=== PATIENT | female | born 1940 | race Caucasian/White ===

== ENCOUNTER 2016-07-25 12:16 | Inpatient (IN) | payer OTHER ==
[~2016-07-25] VITALS: Ht 152.4 cm; Wt 79.0 kg
[~2016-07-25 12:16] MED LIST: ACCOLATE20 MG PO; ACIDOPHILUS1 EAC4 PO; ALLEGRA ALLERG180 MG PO; ASPIRIN81 M2 PO; AUGMENTIN500 MG PO; BENTYL10 MG PO; BENZONATATE200 MG PO; BROVANA15 MCG/2 M IH; BUSPAR15 MG PO; CARDIZEM CD,CA240 MG PO; COZAAR50 MG PO; DOK PLUS TABLE1 EACH PO; DOXYCYCLINE HY100 M4 PO; DUONEB 2.5-0.5 M3 ML IH; ELIQUIS5 MG PO; EYE DROPS ALLER15 ML BOTH EYES; FISH OIL 1,2001 EAC4 PO; GABAPENTIN100 MG PO; HYDROCHLOROTH12.5 M3 PO; HYDROCHLOROTHIA25 MG PO; KENALOG,ARISTOC15 G1 TP; LANTUS 10100 UNITS/ SC; LEVAQUIN500 MG PO; LEVOFLOXACIN750 MG PO; LEXAPRO10 MG PO; LEXAPRO20 MG PO; LOSARTAN POTASS50 MG PO; METFORMIN HCL500 MG PO; MICRO-K10 ME2 PO; NABUMETONE750 MG PO; NORCO 5/3251 TABLET PO; NYSTATIN100000 UN1 PO; PAXIL20 MG PO; PRAVACHOL40 MG PO; PRAVASTATIN SOD40 MG PO; PREDNISONE10 MG PO; PREDNISONE20 MG PO; PREDNISONE50 MG PO; PROMETHAZINE12.5 M1 PO; PROTONIX40 MG PO; PROVENTIL HFA6.7 GM IH; PROVENTIL,2.5 MG/3 M IH; PROVENTIL2.5 MG/3 M IH; PULMICORT0.25 MG/1 IH; PULMICORT0.5 MG/21 IH; TRAMADOL HCL50 MG PO; VIBRAMYCIN100 MG PO; VITAMIN B-122500 MCG SL; VITAMIN D31000 UNI2 PO; ZAFIRLUKAST20 M1 PO; ZITHROMAX Z-PA250 MG PO
[2016-07-25 13:01] LABS: HEMATOCRIT 34.2 % (36.0-46.0); MCH 27.5 PG (29.0-34.0); MCHC 31.6 G/DL (30.0-36.0); MEAN PLAT.VOLUME 9.6 uM^3 (9.5-12.4); PLATELET COUNT 309 K/uL (156-360); RBC DIS.WIDTH-CV 13.4 % (11.8-14.6); RBC DIS.WIDTH-SD 41.9 % (39-53); RED BLOOD COUNT 3.93 M/uL (3.80-5.20); WHITE BLOOD COUNT 9.4 K/uL (4.1-10.2)
[2016-07-25 13:12] LABS: CHLORIDE 104 mEq/L (99-109); POTASSIUM 4.4 mEq/L (3.7-5.4); SODIUM 140 mEq/L (136-147)
[2016-07-25 13:14] LABS: GLUCOSE 216 mg/dL (70-99)
[2016-07-25 13:15] LABS: ANION GAP 10 MEQ/L (2-14)
[2016-07-25 13:18] LABS: GFR ESTIMATE (CALCULATED) > 59 mL/min/; UREA NITROGEN (BUN) 15 mg/dL (9-23)
[2016-07-25 13:26] LABS: TROP-I INTERPRETATION NEGATIVE; TROPONIN-I < 0.01 ng/mL (0.0-0.30)
[2016-07-25] MEDS ORDERED: HYDROCHLOROTHIA25 MG PO (14:34)
[2016-07-25] MEDS ORDERED: METFORMIN HCL500 MG PO (14:36)
[2016-07-25] MEDS ORDERED: MICRO-K10 ME2 PO (14:37)
[2016-07-25] MEDS ORDERED: PROVENTIL,2.5 MG/3 M IH (14:38)
[2016-07-25] MEDS ORDERED: CARDIZEM CD,CA240 MG PO (14:42)
[2016-07-25] MEDS ORDERED: LOSARTAN POTAS100 MG PO (14:43)
[2016-07-25] MEDS ORDERED: MUCINEX FAST-M1 EA13 PO (14:45)
[2016-07-25] MEDS ORDERED: ARTIFICIAL TEAR15 M1 BOTH EYES (14:51)
[2016-07-25 15:45] VITALS: BP 196/84
[2016-07-25 17:41] VITALS: BP 152/68
[2016-07-25 19:12] LABS: TROP-I INTERPRETATION NEGATIVE; TROPONIN-I < 0.01 ng/mL (0.0-0.30)
[2016-07-25 19:56] VITALS: BP 169/73
[2016-07-25 23:34] VITALS: BP 143/65
[2016-07-26 01:19] LABS: TROP-I INTERPRETATION NEGATIVE; TROPONIN-I < 0.01 ng/mL (0.0-0.30)
[2016-07-26 03:48] VITALS: BP 167/72
[2016-07-26 07:58] VITALS: BP 183/81
[2016-07-26 10:16] LABS: EOSINOPHIL (%) 0 % (0-5); IMMATURE GRANULOCYTE (%) 0.4 % (0.0-0.7); IMMATURE GRANULOCYTE COUNT 0.1 K/uL; LYMPHOCYTE COUNT 0.8 K/uL (1.0-2.8); MCH 28.1 PG (29.0-34.0); MCHC 32.7 G/DL (30.0-36.0); MCV 85.7 FL (83-99); MEAN PLAT.VOLUME 9.9 uM^3 (9.5-12.4); MONOCYTE (%) 1.9 % (3-12); MONOCYTE COUNT 0.2 K/uL (0-0.8); NEUTROPHIL (%) 90.6 % (45-76); NEUTROPHIL COUNT 10.7 K/uL (1.8-6.4); PLATELET COUNT 308 K/uL (156-360); RBC DIS.WIDTH-CV 13.5 % (11.8-14.6); RED BLOOD COUNT 3.85 M/uL (3.80-5.20); WHITE BLOOD COUNT 11.8 K/uL (4.1-10.2)
[2016-07-26 10:31] LABS: ANION GAP 9 MEQ/L (2-14); CHLORIDE 97 MEQ/L (99-109); MAGNESIUM 1.5 mg/dl (1.3-2.7); POTASSIUM 3.9 MEQ/L (3.7-5.4); SAMPLE HEMOLYSIS CHECK 0; SAMPLE ICTERIC CHECK 0; SAMPLE LIPEMIA CHECK 0; SODIUM 136 MEQ/L (136-147)
[2016-07-26 10:36] LABS: GFR ESTIMATE (CALCULATED) > 59 mL/min/; GLUCOSE 289 mg/dL (70-99); UREA NITROGEN (BUN) 18 mg/dL (9-23)
[2016-07-26 16:29] VITALS: BP 160/71
[2016-07-26 19:47] VITALS: BP 168/77
[2016-07-26 22:56] VITALS: BP 160/64
[2016-07-27] VITALS (8 sets, daily range): BP systolic 125–178; BP diastolic 65–86
[2016-07-27 06:31] LABS: ANION GAP 9 MEQ/L (2-14); CHLORIDE 97 MEQ/L (99-109); GFR ESTIMATE (CALCULATED) > 59 mL/min/; GLUCOSE 193 mg/dL (70-99); MAGNESIUM 1.5 mg/dl (1.3-2.7); POTASSIUM 3.7 MEQ/L (3.7-5.4); SAMPLE HEMOLYSIS CHECK 0; SAMPLE ICTERIC CHECK 0; SAMPLE LIPEMIA CHECK 0; SODIUM 136 MEQ/L (136-147); UREA NITROGEN (BUN) 21 mg/dL (9-23)
[2016-07-27 06:48] LABS: EOSINOPHIL (%) 0 % (0-5); HEMATOCRIT 35.6 % (36.0-46.0); IMMATURE GRANULOCYTE (%) 0.3 % (0.0-0.7); IMMATURE GRANULOCYTE COUNT 0.1 K/uL; LYMPHOCYTE COUNT 1.3 K/uL (1.0-2.8); MCH 28.1 PG (29.0-34.0); MCHC 32.6 G/DL (30.0-36.0); MCV 86.2 FL (83-99); MEAN PLAT.VOLUME 10.4 uM^3 (9.5-12.4); MONOCYTE COUNT 1.2 K/uL (0-0.8); NEUTROPHIL (%) 87.4 % (45-76); NEUTROPHIL COUNT 17.4 K/uL (1.8-6.4); PLATELET COUNT 346 K/uL (156-360); RBC DIS.WIDTH-CV 13.6 % (11.8-14.6); RBC DIS.WIDTH-SD 42.3 % (39-53); RED BLOOD COUNT 4.13 M/uL (3.80-5.20); WHITE BLOOD COUNT 19.9 K/uL (4.1-10.2)
[2016-07-28 08:20] VITALS: BP 134/65
[2016-07-28 16:15] VITALS: BP 130/73
[2016-07-28 20:24] VITALS: BP 121/63
[2016-07-29 00:06] VITALS: BP 154/78
[2016-07-29 07:30] VITALS: BP 142/62
[2016-07-29 07:50] LABS: EOSINOPHIL (%) 1.6 % (0-5); EOSINOPHIL COUNT 0.2 K/uL (0-0.3); HEMATOCRIT 37.1 % (36.0-46.0); IMMATURE GRANULOCYTE (%) 0.4 % (0.0-0.7); IMMATURE GRANULOCYTE COUNT 0.1 K/uL; LYMPHOCYTE COUNT 3.4 K/uL (1.0-2.8); MCH 27.7 PG (29.0-34.0); MCHC 31.5 G/DL (30.0-36.0); MCV 87.7 FL (83-99); MEAN PLAT.VOLUME 10.5 uM^3 (9.5-12.4); MONOCYTE (%) 10.4 % (3-12); MONOCYTE COUNT 1.3 K/uL (0-0.8); NEUTROPHIL (%) 61.6 % (45-76); PLATELET COUNT 356 K/uL (156-360); RBC DIS.WIDTH-SD 44.2 % (39-53); RED BLOOD COUNT 4.23 M/uL (3.80-5.20)
[2016-07-29 07:54] LABS: WHITE BLOOD COUNT 12.9 K/uL (4.1-10.2)
[2016-07-29 08:00] LABS: ALKALINE PHOSPHATASE 59 IU/L (3-129); ANION GAP 7 MEQ/L (2-14); CHLORIDE 100 MEQ/L (99-109); GFR ESTIMATE (CALCULATED) > 59 mL/min/; GLUCOSE 88 mg/dL (70-99); MAGNESIUM 1.8 mg/dl (1.3-2.7); POTASSIUM 3.9 MEQ/L (3.7-5.4); SAMPLE HEMOLYSIS CHECK 0; SAMPLE ICTERIC CHECK 0; SAMPLE LIPEMIA CHECK 0; SODIUM 138 MEQ/L (136-147); TOTAL BILIRUBIN 0.4 MG/DL (0.0-1.0); UREA NITROGEN (BUN) 24 mg/dL (9-23)
[2016-07-29 14:01] LABS: TROP-I INTERPRETATION NEGATIVE; TROPONIN-I 0.02 ng/mL (0.0-0.30)
[2016-07-29 16:30] LABS: POINT-OF-CARE METER ID UU14162508
[2016-07-29 16:37] VITALS: BP 116/57
[2016-07-29 17:00] LABS: ADD MIUA? YES; BILIRUBIN NEGATIVE; BLOOD NEGATIVE; COLOR YELLOW ((YELLOW)); GLUCOSE (STRIP) 150; KETONES NEGATIVE; LEUKOCYTES TRACE; NITRITE NEGATIVE; PROTEIN (STRIP) NEGATIVE; SPECIFIC GRAVITY 1.015 (1.000-1.030); UROBILINOGEN 0.2 MG/DL (0.2-1.0)
[2016-07-29 17:03] LABS: Estimated Average Glucose 169 mg/dL (70-123); HEMOGLOBIN A1c (GLYCOHEMOGLOB) 7.5 % HGB (Below 5.7)
[2016-07-29 17:12] LABS: BACTERIA NONE SEEN /HPF; EPITHELIAL CELLS RARE /HPF; HYALINE CASTS 0-5 /LPF; MUCUS TRACE /LPF; RED BLOOD CELLS 0-5 /HPF (0-5); UCUL ADDED? NO; WHITE BLOOD CELLS 0-5 /HPF (0-5)
[2016-07-29 19:49] VITALS: BP 138/88
[2016-07-29 19:53] LABS: TROP-I INTERPRETATION NEGATIVE; TROPONIN-I 0.01 ng/mL (0.0-0.30)
[2016-07-29 21:45] LABS: POINT-OF-CARE METER ID UU14162508
[2016-07-29 23:50] VITALS: BP 137/95
[2016-07-30 01:49] LABS: TROP-I INTERPRETATION NEGATIVE; TROPONIN-I 0.01 ng/mL (0.0-0.30)
[2016-07-30 03:15] VITALS: BP 158/78
[2016-07-30 07:13] LABS: EOSINOPHIL (%) 2.6 % (0-5); EOSINOPHIL COUNT 0.3 K/uL (0-0.3); HEMATOCRIT 37.7 % (36.0-46.0); IMMATURE GRANULOCYTE (%) 0.4 % (0.0-0.7); IMMATURE GRANULOCYTE COUNT 0.1 K/uL; LYMPHOCYTE COUNT 3.5 K/uL (1.0-2.8); MCH 26.9 PG (29.0-34.0); MCHC 30.8 G/DL (30.0-36.0); MCV 87.3 FL (83-99); MEAN PLAT.VOLUME 10.4 uM^3 (9.5-12.4); MONOCYTE COUNT 0.9 K/uL (0-0.8); NEUTROPHIL (%) 59.3 % (45-76); PLATELET COUNT 359 K/uL (156-360); RBC DIS.WIDTH-CV 13.8 % (11.8-14.6); RBC DIS.WIDTH-SD 44.2 % (39-53); RED BLOOD COUNT 4.32 M/uL (3.80-5.20); WHITE BLOOD COUNT 11.7 K/uL (4.1-10.2)
[2016-07-30 07:20] VITALS: BP 152/62
[2016-07-30 07:40] LABS: ALKALINE PHOSPHATASE 53 IU/L (3-129); ANION GAP 7 MEQ/L (2-14); CHLORIDE 98 MEQ/L (99-109); GFR ESTIMATE (CALCULATED) > 59 mL/min/; GLUCOSE 85 mg/dL (70-99); SAMPLE HEMOLYSIS CHECK 0; SAMPLE ICTERIC CHECK 0; SAMPLE LIPEMIA CHECK 0; SODIUM 136 MEQ/L (136-147); UREA NITROGEN (BUN) 26 mg/dL (9-23)
[2016-07-30 07:52] LABS: TOTAL BILIRUBIN 0.5 MG/DL (0.0-1.0)
[2016-07-30 11:37] VITALS: BP 142/72
[2016-07-30 11:47] LABS: POINT-OF-CARE METER ID UU14162508
[2016-07-30 16:30] VITALS: BP 130/64
[2016-07-30 16:36] LABS: POINT-OF-CARE METER ID UU14162508
[2016-07-30 19:59] VITALS: BP 131/63
[2016-07-30 21:38] LABS: POINT-OF-CARE METER ID UU14162508
[2016-07-30 23:39] VITALS: BP 118/81
[2016-07-31 03:55] VITALS: BP 136/68
[2016-07-31 06:15] LABS: POINT-OF-CARE METER ID UU14162508
[2016-07-31 08:21] VITALS: BP 130/64
[2016-07-31] MEDS ORDERED: LANTUS 10100 UNITS/ SC ×2 (12:02)
[2016-07-31] MEDS ORDERED: PREDNISONE10 MG PO (12:04)
[2016-07-31] MEDS ORDERED: XARELTO20 MG PO (12:04)
[2016-07-31] MEDS ORDERED: METOPROLOL TART50 MG PO (12:04)
[2016-07-31] MEDS ORDERED: APRESOLINE25 MG PO (12:04)
[2016-07-31 12:21] VITALS: BP 96/55
== END 2016-07-31 14:45 | disposition home health service (06) | DRG 191 ==
LOC: EME 12:16 → 2EAST 14:12 → EDOF 14:12 → 2EAST 15:23
PROVIDERS: Emergency Medicine; Hospitalist; Internal Medicine; Nurse Practitioner Adult Health
DX: J44.1 Chronic obstructive pulmonary disease with (acute) exacerbation (principal); J96.10 Chronic respiratory failure, unspecified whether with hypoxia or hypercapnia; E11.65 Type 2 diabetes mellitus with hyperglycemia; Z99.81 Dependence on supplemental oxygen; I48.0 Paroxysmal atrial fibrillation; I10 Essential (primary) hypertension; Z79.4 Long term (current) use of insulin; E78.5 Hyperlipidemia, unspecified; F41.9 Anxiety disorder, unspecified; Z87.891 Personal history of nicotine dependence; K21.9 Gastro-esophageal reflux disease without esophagitis; F32.9 Major depressive disorder, single episode, unspecified
CPT/HCPCS: 71010; 80048; 80053; 81003; 82948; 83036; 83735; 83880; 84484; 85025; 85027; 87449; 92526 GN; 92610 GN; 93005; 94640; 94640 76; 94760; 94799; 99281; 99285; J1815; J2405; J2930; J7512; J7644

== ENCOUNTER 2016-08-13 11:34 | Inpatient (IN) | payer OTHER ==
[~2016-08-13] VITALS: Ht 152.4 cm; Wt 82.5 kg
[~2016-08-13 11:34] MED LIST changes: +APRESOLINE25 MG PO; +ARTIFICIAL TEAR15 M1 BOTH EYES; +LOSARTAN POTAS100 MG PO; +METOPROLOL TART50 MG PO; +MUCINEX FAST-M1 EA13 PO; +XARELTO20 MG PO
[2016-08-13 13:05] LABS: HEMATOCRIT 34.2 % (36.0-46.0); MCH 27.3 PG (29.0-34.0); MCHC 30.7 G/DL (30.0-36.0); MCV 89.1 FL (83-99); MEAN PLAT.VOLUME 9.5 uM^3 (9.5-12.4); RBC DIS.WIDTH-CV 13.6 % (11.8-14.6); RBC DIS.WIDTH-SD 44.5 % (39-53); RED BLOOD COUNT 3.84 M/uL (3.80-5.20); WHITE BLOOD COUNT 10.4 K/uL (4.1-10.2)
[2016-08-13 13:08] LABS: CARBON DIOXIDE (BICARBONATE) 37.6 MEQ/L (20-31)
[2016-08-13 13:11] LABS: PLATELET COUNT 223 K/uL (156-360)
[2016-08-13 13:16] LABS: D-DIMER ELISA 0.38 mg/L FEU (< 0.57)
[2016-08-13 13:37] LABS: ANION GAP 5 MEQ/L (2-14); CHLORIDE 97 MEQ/L (99-109); GFR ESTIMATE (CALCULATED) > 59 mL/min/; GLUCOSE 202 mg/dL (70-99); POTASSIUM 3.9 MEQ/L (3.7-5.4); SAMPLE HEMOLYSIS CHECK 0; SAMPLE ICTERIC CHECK 0; SAMPLE LIPEMIA CHECK 0; SODIUM 137 MEQ/L (136-147); UREA NITROGEN (BUN) 11 mg/dL (9-23)
[2016-08-13 13:41] LABS: TROP-I INTERPRETATION NEGATIVE; TROPONIN-I 0.01 ng/mL (0.0-0.30)
[2016-08-13] MEDS ORDERED: HYDRALAZINE HCL25 MG PO (17:14)
[2016-08-13] MEDS ORDERED: LANTUS 10100 UNITS/ SC (17:15)
[2016-08-13] MEDS ORDERED: LOSARTAN POTAS100 MG PO (17:16)
[2016-08-13] MEDS ORDERED: RELAFEN750 MG PO (17:18)
[2016-08-13] MEDS ORDERED: METFORMIN HCL500 MG PO (17:18)
[2016-08-13] MEDS ORDERED: CENTRUM SILVER1 EAC3 PO (17:18)
[2016-08-13] MEDS ORDERED: K-DUR10 MEQ PO (17:19)
[2016-08-13] MEDS ORDERED: ALEVE220 MG PO (17:19)
[2016-08-13] MEDS ORDERED: DUONEB 2.5-0.5 M3 ML AEROSOL (17:20)
[2016-08-13 17:29] VITALS: BP 149/68
[2016-08-13 19:35] VITALS: BP 149/60
[2016-08-13 20:43] LABS: TROP-I INTERPRETATION NEGATIVE; TROPONIN-I 0.01 ng/mL (0.0-0.30)
[2016-08-13 23:37] VITALS: BP 158/68
[2016-08-14 01:56] LABS: TROP-I INTERPRETATION NEGATIVE; TROPONIN-I 0.01 ng/mL (0.0-0.30)
[2016-08-14 03:37] VITALS: BP 159/63
[2016-08-14 04:58] LABS: INFLUENZA A VIRAL ANTIGEN NEGATIVE
[2016-08-14 04:59] LABS: INFLUENZA B VIRAL ANTIGEN NEGATIVE
[2016-08-14 07:22] LABS: EOSINOPHIL (%) 0 % (0-5); HEMATOCRIT 32.2 % (36.0-46.0); IMMATURE GRANULOCYTE (%) 0.5 % (0.0-0.7); INSTRUMENT ABS NEUTROPHIL CT 7.8 K/uL; LYMPHOCYTE COUNT 0.4 K/uL (1.0-2.8); MCHC 30.7 G/DL (30.0-36.0); MEAN PLAT.VOLUME 10.3 uM^3 (9.5-12.4); MONOCYTE (%) 2.1 % (3-12); MONOCYTE COUNT 0.2 K/uL (0-0.8); NEUTROPHIL (%) 92.3 % (45-76); NEUTROPHIL COUNT 7.8 K/uL (1.8-6.4); PLATELET COUNT 236 K/uL (156-360); RBC DIS.WIDTH-CV 13.7 % (11.8-14.6); RBC DIS.WIDTH-SD 44.3 % (39-53); RED BLOOD COUNT 3.66 M/uL (3.80-5.20); WHITE BLOOD COUNT 8.5 K/uL (4.1-10.2)
[2016-08-14 07:33] LABS: ANION GAP 9 MEQ/L (2-14); CHLORIDE 97 MEQ/L (99-109); GFR ESTIMATE (CALCULATED) > 59 mL/min/; GLUCOSE 292 mg/dL (70-99); POTASSIUM 4.2 MEQ/L (3.7-5.4); SAMPLE HEMOLYSIS CHECK 0; SAMPLE ICTERIC CHECK 0; SAMPLE LIPEMIA CHECK 0; SODIUM 136 MEQ/L (136-147); UREA NITROGEN (BUN) 13 mg/dL (9-23)
[2016-08-14 09:07] LABS: INTERNAL CONTROL VALID? YES
[2016-08-14 09:17] VITALS: BP 158/80
[2016-08-14 11:43] VITALS: BP 180/77
[2016-08-14 16:52] VITALS: BP 169/74
[2016-08-14 19:00] VITALS: BP 147/67
[2016-08-14 22:13] LABS: POINT-OF-CARE METER ID UU14162508
[2016-08-15] VITALS: BP 175/74
[2016-08-15 04:51] VITALS: BP 168/70
[2016-08-15 07:06] LABS: EOSINOPHIL (%) 0 % (0-5); HEMATOCRIT 34.4 % (36.0-46.0); IMMATURE GRANULOCYTE (%) 0.7 % (0.0-0.7); IMMATURE GRANULOCYTE COUNT 0.1 K/uL; INSTRUMENT ABS NEUTROPHIL CT 13.6 K/uL; LYMPHOCYTE COUNT 0.7 K/uL (1.0-2.8); MCHC 30.5 G/DL (30.0-36.0); MCV 88.4 FL (83-99); MEAN PLAT.VOLUME 9.6 uM^3 (9.5-12.4); MONOCYTE COUNT 0.5 K/uL (0-0.8); NEUTROPHIL (%) 91.4 % (45-76); NEUTROPHIL COUNT 13.6 K/uL (1.8-6.4); PLATELET COUNT 269 K/uL (156-360); RBC DIS.WIDTH-CV 13.9 % (11.8-14.6); RBC DIS.WIDTH-SD 45.1 % (39-53); RED BLOOD COUNT 3.89 M/uL (3.80-5.20); WHITE BLOOD COUNT 14.9 K/uL (4.1-10.2)
[2016-08-15 07:10] LABS: ALKALINE PHOSPHATASE 54 IU/L (3-129); ANION GAP 7 MEQ/L (2-14); CHLORIDE 99 MEQ/L (99-109); GFR ESTIMATE (CALCULATED) > 59 mL/min/; GLUCOSE 283 mg/dL (70-99); POTASSIUM 4.3 MEQ/L (3.7-5.4); SAMPLE HEMOLYSIS CHECK 0; SAMPLE ICTERIC CHECK 0; SAMPLE LIPEMIA CHECK 0; SODIUM 135 MEQ/L (136-147); TOTAL BILIRUBIN 0.6 MG/DL (0.0-1.0); UREA NITROGEN (BUN) 18 mg/dL (9-23)
[2016-08-15 08:12] VITALS: BP 155/67
[2016-08-15 11:49] VITALS: BP 160/71
[2016-08-15 15:50] VITALS: BP 185/78
[2016-08-15 16:30] LABS: POINT-OF-CARE USER ID STWLMB34
[2016-08-15 19:00] VITALS: BP 164/74
[2016-08-16 00:59] VITALS: BP 158/92
[2016-08-16 04:28] VITALS: BP 179/75
[2016-08-16 07:39] LABS: EOSINOPHIL (%) 0 % (0-5); HEMATOCRIT 36.7 % (36.0-46.0); IMMATURE GRANULOCYTE (%) 1.1 % (0.0-0.7); IMMATURE GRANULOCYTE COUNT 0.1 K/uL; INSTRUMENT ABS NEUTROPHIL CT 12.2 K/uL; LYMPHOCYTE COUNT 0.6 K/uL (1.0-2.8); MCH 27.5 PG (29.0-34.0); MCHC 31.1 G/DL (30.0-36.0); MCV 88.6 FL (83-99); MEAN PLAT.VOLUME 9.5 uM^3 (9.5-12.4); MONOCYTE (%) 2.4 % (3-12); MONOCYTE COUNT 0.3 K/uL (0-0.8); NEUTROPHIL (%) 91.8 % (45-76); NEUTROPHIL COUNT 12.2 K/uL (1.8-6.4); PLATELET COUNT 289 K/uL (156-360); RBC DIS.WIDTH-CV 14.2 % (11.8-14.6); RBC DIS.WIDTH-SD 45.6 % (39-53); RED BLOOD COUNT 4.14 M/uL (3.80-5.20); WHITE BLOOD COUNT 13.3 K/uL (4.1-10.2)
[2016-08-16 08:00] VITALS: BP 155/92
[2016-08-16 08:05] LABS: ALKALINE PHOSPHATASE 55 IU/L (3-129); ANION GAP 10 MEQ/L (2-14); CHLORIDE 99 MEQ/L (99-109); GFR ESTIMATE (CALCULATED) > 59 mL/min/; GLUCOSE 213 mg/dL (70-99); POTASSIUM 3.7 MEQ/L (3.7-5.4); SAMPLE HEMOLYSIS CHECK 0; SAMPLE ICTERIC CHECK 0; SAMPLE LIPEMIA CHECK 0; SODIUM 139 MEQ/L (136-147); TOTAL BILIRUBIN 0.7 MG/DL (0.0-1.0); UREA NITROGEN (BUN) 14 mg/dL (9-23)
[2016-08-16 12:00] VITALS: BP 153/73
[2016-08-16 12:17] LABS: POINT-OF-CARE METER ID UU14162508
[2016-08-16 14:39] LABS: ADD MIUA? YES; BILIRUBIN NEGATIVE; BLOOD NEGATIVE; COLOR YELLOW ((YELLOW)); GLUCOSE (STRIP) >=500; KETONES NEGATIVE; LEUKOCYTES NEGATIVE; NITRITE NEGATIVE; PROTEIN (STRIP) 100; SPECIFIC GRAVITY 1.013 (1.000-1.030); UROBILINOGEN 0.2 MG/DL (0.2-1.0)
[2016-08-16 14:45] LABS: BACTERIA RARE /HPF; EPITHELIAL CELLS RARE /HPF; HYALINE CASTS 0-5 /LPF; MUCUS TRACE /LPF; RED BLOOD CELLS 15-20 /HPF (0-5); UCUL ADDED? NO; WHITE BLOOD CELLS 0-5 /HPF (0-5)
[2016-08-16 16:42] LABS: POINT-OF-CARE METER ID UU14162508; POINT-OF-CARE USER ID 612031306
[2016-08-16 20:00] VITALS: BP 142/78
[2016-08-16 23:22] VITALS: BP 142/81
[2016-08-17 06:30] LABS: POINT-OF-CARE METER ID UU14162508
[2016-08-17 07:58] LABS: EOSINOPHIL (%) 0 % (0-5); HEMATOCRIT 35.4 % (36.0-46.0); IMMATURE GRANULOCYTE (%) 0.6 % (0.0-0.7); IMMATURE GRANULOCYTE COUNT 0.1 K/uL; INSTRUMENT ABS NEUTROPHIL CT 10.4 K/uL; LYMPHOCYTE COUNT 0.6 K/uL (1.0-2.8); MCH 27.3 PG (29.0-34.0); MCHC 31.4 G/DL (30.0-36.0); MEAN PLAT.VOLUME 9.7 uM^3 (9.5-12.4); MONOCYTE COUNT 0.5 K/uL (0-0.8); NEUTROPHIL (%) 89.9 % (45-76); NEUTROPHIL COUNT 10.4 K/uL (1.8-6.4); PLATELET COUNT 290 K/uL (156-360); RBC DIS.WIDTH-CV 13.9 % (11.8-14.6); RED BLOOD COUNT 4.07 M/uL (3.80-5.20); WHITE BLOOD COUNT 11.6 K/uL (4.1-10.2)
[2016-08-17 08:00] VITALS: BP 168/74
[2016-08-17 08:20] LABS: ALKALINE PHOSPHATASE 56 IU/L (3-129); ANION GAP 10 MEQ/L (2-14); CHLORIDE 97 MEQ/L (99-109); GFR ESTIMATE (CALCULATED) > 59 mL/min/; GLUCOSE 264 mg/dL (70-99); POTASSIUM 3.6 MEQ/L (3.7-5.4); SAMPLE HEMOLYSIS CHECK 0; SAMPLE ICTERIC CHECK 0; SAMPLE LIPEMIA CHECK 0; SODIUM 138 MEQ/L (136-147); TOTAL BILIRUBIN 0.7 MG/DL (0.0-1.0)
[2016-08-17 08:21] LABS: UREA NITROGEN (BUN) 24 mg/dL (9-23)
[2016-08-17 13:08] LABS: POINT-OF-CARE METER ID UU14162508
[2016-08-17 16:00] VITALS: BP 168/71
[2016-08-17 16:58] LABS: POINT-OF-CARE METER ID UU14162508
[2016-08-17 21:31] LABS: POINT-OF-CARE METER ID UU14162508
[2016-08-17 23:41] VITALS: BP 168/85
[2016-08-18 10:00] LABS: EOSINOPHIL (%) 0 % (0-5); HEMATOCRIT 38.2 % (36.0-46.0); IMMATURE GRANULOCYTE (%) 0.8 % (0.0-0.7); IMMATURE GRANULOCYTE COUNT 0.1 K/uL; INSTRUMENT ABS NEUTROPHIL CT 12.3 K/uL; LYMPHOCYTE COUNT 0.6 K/uL (1.0-2.8); MCHC 32.2 G/DL (30.0-36.0); MEAN PLAT.VOLUME 9.8 uM^3 (9.5-12.4); MONOCYTE (%) 5.6 % (3-12); MONOCYTE COUNT 0.8 K/uL (0-0.8); NEUTROPHIL (%) 89.2 % (45-76); NEUTROPHIL COUNT 12.3 K/uL (1.8-6.4); PLATELET COUNT 318 K/uL (156-360); RBC DIS.WIDTH-CV 13.7 % (11.8-14.6); RBC DIS.WIDTH-SD 43.3 % (39-53); RED BLOOD COUNT 4.39 M/uL (3.80-5.20); WHITE BLOOD COUNT 13.8 K/uL (4.1-10.2)
[2016-08-18 10:30] LABS: ALKALINE PHOSPHATASE 63 IU/L (3-129); ANION GAP 12 MEQ/L (2-14); CHLORIDE 97 MEQ/L (99-109); GFR ESTIMATE (CALCULATED) > 59 mL/min/; GLUCOSE 396 mg/dL (70-99); POTASSIUM 3.6 MEQ/L (3.7-5.4); SAMPLE HEMOLYSIS CHECK 0; SAMPLE ICTERIC CHECK 0; SAMPLE LIPEMIA CHECK 0; SODIUM 136 MEQ/L (136-147); TOTAL BILIRUBIN 0.9 MG/DL (0.0-1.0); UREA NITROGEN (BUN) 25 mg/dL (9-23)
[2016-08-18 10:45] VITALS: BP 162/72
[2016-08-18 15:45] VITALS: BP 160/74
[2016-08-18 19:05] VITALS: BP 166/73
[2016-08-19 03:48] VITALS: BP 172/85
[2016-08-19 07:11] LABS: EOSINOPHIL (%) 0.4 % (0-5); EOSINOPHIL COUNT 0.1 K/uL (0-0.3); IMMATURE GRANULOCYTE (%) 0.5 % (0.0-0.7); IMMATURE GRANULOCYTE COUNT 0.1 K/uL; INSTRUMENT ABS NEUTROPHIL CT 10.7 K/uL; LYMPHOCYTE COUNT 1.5 K/uL (1.0-2.8); MCH 27.7 PG (29.0-34.0); MCHC 31.8 G/DL (30.0-36.0); MONOCYTE (%) 8.9 % (3-12); MONOCYTE COUNT 1.2 K/uL (0-0.8); NEUTROPHIL (%) 79.1 % (45-76); NEUTROPHIL COUNT 10.7 K/uL (1.8-6.4); PLATELET COUNT 335 K/uL (156-360); RBC DIS.WIDTH-CV 13.7 % (11.8-14.6); RBC DIS.WIDTH-SD 43.2 % (39-53); RED BLOOD COUNT 4.37 M/uL (3.80-5.20); WHITE BLOOD COUNT 13.6 K/uL (4.1-10.2)
[2016-08-19 07:50] LABS: ANION GAP 7 MEQ/L (2-14); CHLORIDE 97 MEQ/L (99-109); GFR ESTIMATE (CALCULATED) > 59 mL/min/; POTASSIUM 3.1 MEQ/L (3.7-5.4); SAMPLE HEMOLYSIS CHECK 0; SAMPLE ICTERIC CHECK 0; SAMPLE LIPEMIA CHECK 0; SODIUM 139 MEQ/L (136-147); UREA NITROGEN (BUN) 23 mg/dL (9-23)
[2016-08-19 07:51] LABS: GLUCOSE 116 mg/dL (70-99)
[2016-08-19 08:22] VITALS: BP 173/79
[2016-08-19 12:52] VITALS: BP 136/67
[2016-08-19] MEDS ORDERED: DOXYCYCLINE HY100 M3 PO (15:24)
[2016-08-19] MEDS ORDERED: LISINOPRIL10 MG PO (15:25)
[2016-08-19] MEDS ORDERED: PREDNISONE20 MG PO (15:26)
[2016-08-19] MEDS ORDERED: NOVOLOG PE100 UNITS/ SC ×2 (15:27)
[2016-08-19 16:51] VITALS: BP 144/64
== END 2016-08-19 17:27 | DRG 189 ==
LOC: EME → EDBD 11:34 → EDOF 14:49 → 2EAST 14:49
PROVIDERS: Emergency Medicine; Hospitalist; Internal Medicine
DX: J96.21 Acute and chronic respiratory failure with hypoxia (principal); J18.9 Pneumonia, unspecified organism; J44.0 Chronic obstructive pulmonary disease with (acute) lower respiratory infection; I11.0 Hypertensive heart disease with heart failure; E11.65 Type 2 diabetes mellitus with hyperglycemia; I50.30 Unspecified diastolic (congestive) heart failure; G91.2 (Idiopathic) normal pressure hydrocephalus; J44.1 Chronic obstructive pulmonary disease with (acute) exacerbation; I48.0 Paroxysmal atrial fibrillation; K21.9 Gastro-esophageal reflux disease without esophagitis; E78.5 Hyperlipidemia, unspecified; F39 Unspecified mood [affective] disorder; Z99.81 Dependence on supplemental oxygen; N39.3 Stress incontinence (female) (male); Z98.2 Presence of cerebrospinal fluid drainage device; D64.9 Anemia, unspecified; Y95 Nosocomial condition; E66.9 Obesity, unspecified; Z68.37 Body mass index [BMI] 37.0-37.9, adult
CPT/HCPCS: 71010; 71250; 80048; 80053; 81003; 82803; 82948; 83605; 83880; 84484; 85025; 85027; 85379; 87040; 87070; 87205; 87449; 87502; 93005; 93306; 94010; 94640 76; 94644; 94660; 94667; 94668; 94760; 94799; 99202; 99281; 99284; J1650; J1815; J1940; J2543; J2920; J2930; J3370; J7050; J7512; J7644

== ENCOUNTER 2016-09-30 10:32 | Emergency (ER) | payer OTHER ==
[~2016-09-30] VITALS: Ht 152.4 cm; Wt 82.1 kg
[~2016-09-30 10:32] MED LIST changes: +ALEVE220 MG PO; +CENTRUM SILVER1 EAC3 PO; +DOXYCYCLINE HY100 M3 PO; +DUONEB 2.5-0.5 M3 ML AEROSOL; +HYDRALAZINE HCL25 MG PO; +K-DUR10 MEQ PO; +LISINOPRIL10 MG PO; +NOVOLOG PE100 UNITS/ SC; +RELAFEN750 MG PO
[2016-09-30 11:33] LABS: EOSINOPHIL (%) 1.5 % (0-5); EOSINOPHIL COUNT 0.1 K/uL (0-0.3); HEMATOCRIT 30.6 % (36.0-46.0); IMMATURE GRANULOCYTE (%) 0.8 % (0.0-0.7); IMMATURE GRANULOCYTE COUNT 0.1 K/uL; INSTRUMENT ABS NEUTROPHIL CT 5.8 K/uL; LYMPHOCYTE COUNT 2.1 K/uL (1.0-2.8); MCH 26.2 PG (29.0-34.0); MEAN PLAT.VOLUME 9.5 uM^3 (9.5-12.4); MONOCYTE COUNT 0.7 K/uL (0-0.8); NEUTROPHIL (%) 65.5 % (45-76); NEUTROPHIL COUNT 5.8 K/uL (1.8-6.4); PLATELET COUNT 340 K/uL (156-360); RBC DIS.WIDTH-CV 14.9 % (11.8-14.6); RBC DIS.WIDTH-SD 45.8 % (39-53); RED BLOOD COUNT 3.63 M/uL (3.80-5.20); WHITE BLOOD COUNT 8.8 K/uL (4.1-10.2)
[2016-09-30 11:39] LABS: MCV 84.3 FL (83-99)
[2016-09-30 11:42] LABS: INTER. NORMALIZED RATIO 1.4; PROTHROMBIN TIME 14.7 (9.2-11.2); PTT 35.5 (25-32)
[2016-09-30 11:43] LABS: CHLORIDE 93 mEq/L (99-109); POTASSIUM 3.5 mEq/L (3.7-5.4); SODIUM 135 mEq/L (136-147)
[2016-09-30 11:45] LABS: GLUCOSE 143 mg/dL (70-99)
[2016-09-30 11:46] LABS: ANION GAP 9 MEQ/L (2-14)
[2016-09-30 11:49] LABS: GFR ESTIMATE (CALCULATED) 57 mL/min/; UREA NITROGEN (BUN) 14 mg/dL (9-23)
[2016-09-30 11:53] LABS: TROP-I INTERPRETATION NEGATIVE; TROPONIN-I < 0.01 ng/mL (0.0-0.30)
[2016-09-30] MEDS ORDERED: PREDNISONE50 MG PO (12:44)
[2016-09-30] MEDS ORDERED: AUGMENTIN875 MG PO (12:44)
[2016-09-30 13:29] VITALS: BP 147/68
[2016-10-01] MEDS ORDERED: GLUCOPHAGE500 MG PO (22:25)
== END 2016-09-30 13:36 | disposition home or self-care (01) ==
LOC: EME → EDBD 10:32 → EME 13:36
PROVIDERS: Emergency Medicine
DX: J44.1 Chronic obstructive pulmonary disease with (acute) exacerbation (principal); I48.91 Unspecified atrial fibrillation; Z79.01 Long term (current) use of anticoagulants; J45.909 Unspecified asthma, uncomplicated; E11.9 Type 2 diabetes mellitus without complications; Z79.4 Long term (current) use of insulin; I10 Essential (primary) hypertension; Z99.81 Dependence on supplemental oxygen; Z98.2 Presence of cerebrospinal fluid drainage device; Z88.1 Allergy status to other antibiotic agents; Z88.2 Allergy status to sulfonamides; Z88.8 Allergy status to other drugs, medicaments and biological substances; Z87.891 Personal history of nicotine dependence
CPT/HCPCS: 71010; 80048; 83880; 84484; 85025; 85610; 85730; 87040; 93005; 94640; 99281; 99285; J2930; J7644

== ENCOUNTER 2016-10-01 19:16 | Emergency (ER) | payer OTHER ==
[~2016-10-01] VITALS: Ht 149.9 cm; Wt 72.7 kg
[~2016-10-01 19:16] MED LIST changes: +AUGMENTIN875 MG PO
[2016-10-01 19:46] LABS: POINT-OF-CARE METER ID UU13113778
[2016-10-01 20:38] LABS: EOSINOPHIL (%) 0.1 % (0-5); HEMATOCRIT 30.2 % (36.0-46.0); IMMATURE GRANULOCYTE (%) 0.9 % (0.0-0.7); IMMATURE GRANULOCYTE COUNT 0.2 K/uL; INSTRUMENT ABS NEUTROPHIL CT 13.1 K/uL; LYMPHOCYTE COUNT 1.7 K/uL (1.0-2.8); MCH 26.7 PG (29.0-34.0); MCHC 31.8 G/DL (30.0-36.0); MCV 83.9 FL (83-99); MEAN PLAT.VOLUME 9.8 uM^3 (9.5-12.4); MONOCYTE (%) 6.8 % (3-12); MONOCYTE COUNT 1.1 K/uL (0-0.8); NEUTROPHIL (%) 81.8 % (45-76); NEUTROPHIL COUNT 13.1 K/uL (1.8-6.4); PLATELET COUNT 387 K/uL (156-360); RBC DIS.WIDTH-SD 45.5 % (39-53)
[2016-10-01 20:39] LABS: WHITE BLOOD COUNT 16.1 K/uL (4.1-10.2)
[2016-10-01 21:04] LABS: CHLORIDE 91 mEq/L (99-109); POTASSIUM 3.5 mEq/L (3.7-5.4); SODIUM 135 mEq/L (136-147)
[2016-10-01 21:07] LABS: ANION GAP 13 MEQ/L (2-14); GLUCOSE 376 mg/dL (70-99)
[2016-10-01 21:10] LABS: GFR ESTIMATE (CALCULATED) 39 mL/min/
[2016-10-01 21:13] LABS: UREA NITROGEN (BUN) 33 mg/dL (9-23)
[2016-10-01 21:15] LABS: TROP-I INTERPRETATION NEGATIVE; TROPONIN-I 0.02 ng/mL (0.0-0.30)
[2016-10-01] MEDS ORDERED: GLUCOPHAGE500 MG PO (22:25)
[2016-10-01 22:49] VITALS: BP 144/62
[2016-10-01 22:50] LABS: BILIRUBIN NEGATIVE; BLOOD NEGATIVE; COLOR YELLOW ((YELLOW)); GLUCOSE (STRIP) 150; KETONES NEGATIVE; LEUKOCYTES NEGATIVE; NITRITE NEGATIVE; PROTEIN (STRIP) NEGATIVE; SPECIFIC GRAVITY 1.014 (1.000-1.030); UROBILINOGEN 0.2 MG/DL (0.2-1.0)
[2016-10-01 22:54] LABS: ADD MIUA? NO; UCUL ADDED? NO
== END 2016-10-01 23:10 | disposition home or self-care (01) ==
LOC: EME 19:16
PROVIDERS: Emergency Medicine
DX: E11.65 Type 2 diabetes mellitus with hyperglycemia (principal); Z79.4 Long term (current) use of insulin; I10 Essential (primary) hypertension; J44.9 Chronic obstructive pulmonary disease, unspecified; J45.909 Unspecified asthma, uncomplicated; Z87.891 Personal history of nicotine dependence
CPT/HCPCS: 80048; 81003; 82948; 84484; 85025; 99281; 99285; J1815; J7030

== ENCOUNTER 2016-11-12 10:16 | Inpatient (IN) | payer OTHER ==
[2016-11-12] VITALS (9 sets, daily range): BP systolic 121–139; BP diastolic 51–80
[~2016-11-12] VITALS: Ht 152.4 cm; Wt 67.5 kg
[~2016-11-12 10:16] MED LIST changes: +GLUCOPHAGE500 MG PO
[2016-11-12 11:13] LABS: EOSINOPHIL (%) 1.7 % (0-5); EOSINOPHIL COUNT 0.1 K/uL (0-0.3); HEMATOCRIT 34.2 % (36.0-46.0); IMMATURE GRANULOCYTE (%) 0.4 % (0.0-0.7); INSTRUMENT ABS NEUTROPHIL CT 5.3 K/uL; LYMPHOCYTE COUNT 2.2 K/uL (1.0-2.8); MCH 25.3 PG (29.0-34.0); MCHC 30.1 G/DL (30.0-36.0); MEAN PLAT.VOLUME 9.8 uM^3 (9.5-12.4); MONOCYTE (%) 7.2 % (3-12); MONOCYTE COUNT 0.6 K/uL (0-0.8); NEUTROPHIL (%) 63.9 % (45-76); NEUTROPHIL COUNT 5.3 K/uL (1.8-6.4); PLATELET COUNT 311 K/uL (156-360); RBC DIS.WIDTH-CV 14.1 % (11.8-14.6); RBC DIS.WIDTH-SD 43.4 % (39-53); RED BLOOD COUNT 4.07 M/uL (3.80-5.20); WHITE BLOOD COUNT 8.2 K/uL (4.1-10.2)
[2016-11-12 11:25] LABS: CHLORIDE 99 mEq/L (99-109); POTASSIUM 3.6 mEq/L (3.7-5.4); SODIUM 139 mEq/L (136-147)
[2016-11-12 11:26] LABS: GLUCOSE 154 mg/dL (70-99); INTER. NORMALIZED RATIO 1.3; PTT 30.6 (25-32)
[2016-11-12 11:28] LABS: ANION GAP 9 MEQ/L (2-14)
[2016-11-12 11:30] LABS: GFR ESTIMATE (CALCULATED) > 59 mL/min/
[2016-11-12 11:31] LABS: UREA NITROGEN (BUN) 13 mg/dL (9-23)
[2016-11-12 11:34] LABS: TROP-I INTERPRETATION NEGATIVE; TROPONIN-I < 0.01 ng/mL (0.0-0.30)
[2016-11-12] MEDS ORDERED: LANTUS 3 M100 UNITS1 SC ×2 (14:15→14:44)
[2016-11-12] MEDS ORDERED: METFORMIN HCL500 MG PO (14:16)
[2016-11-12] MEDS ORDERED: LISINOPRIL10 MG PO (14:16)
[2016-11-12] MEDS ORDERED: LASIX40 MG PO (14:19)
[2016-11-12] MEDS ORDERED: HYDROCHLOROTHIA25 MG PO (14:19)
[2016-11-12] MEDS ORDERED: KLOR-CON M2020 MEQ PO (14:19)
[2016-11-12] MEDS ORDERED: NOVOLOG PE100 UNITS/ SC (14:44)
[2016-11-12 19:12] LABS: TROP-I INTERPRETATION NEGATIVE; TROPONIN-I < 0.01 ng/mL (0.0-0.30)
[2016-11-13] VITALS (10 sets, daily range): BP systolic 111–168; BP diastolic 61–112
[2016-11-13 01:24] LABS: TROP-I INTERPRETATION NEGATIVE; TROPONIN-I < 0.01 ng/mL (0.0-0.30)
[2016-11-13 07:46] LABS: POINT-OF-CARE METER ID UU13113781
[2016-11-13 09:14] LABS: HEMATOCRIT 32.3 % (36.0-46.0); MCH 26.5 PG (29.0-34.0); MCHC 31.9 G/DL (30.0-36.0); MCV 83.2 FL (83-99); MEAN PLAT.VOLUME 9.9 uM^3 (9.5-12.4); PLATELET COUNT 305 K/uL (156-360); RBC DIS.WIDTH-CV 14.3 % (11.8-14.6); RBC DIS.WIDTH-SD 42.7 % (39-53); RED BLOOD COUNT 3.88 M/uL (3.80-5.20); WHITE BLOOD COUNT 11.4 K/uL (4.1-10.2)
[2016-11-13 09:41] LABS: POINT-OF-CARE METER ID UU13113781
[2016-11-13 09:51] LABS: ANION GAP 7 MEQ/L (2-14); CHLORIDE 98 MEQ/L (99-109); GFR ESTIMATE (CALCULATED) > 59 mL/min/; POTASSIUM 3.9 MEQ/L (3.7-5.4); SAMPLE HEMOLYSIS CHECK 0; SAMPLE ICTERIC CHECK 0; SAMPLE LIPEMIA CHECK 0; SODIUM 136 MEQ/L (136-147); UREA NITROGEN (BUN) 16 mg/dL (9-23)
[2016-11-13 09:52] LABS: GLUCOSE 254 mg/dL (70-99)
[2016-11-13 11:33] LABS: POINT-OF-CARE METER ID UU14174216
[2016-11-13] MEDS ORDERED: LASIX20 MG PO (12:14)
[2016-11-13 16:48] LABS: POINT-OF-CARE METER ID UU14174216
[2016-11-14 00:20] VITALS: BP 141/73
[2016-11-14 04:30] VITALS: BP 123/75
[2016-11-14 07:31] VITALS: BP 149/72
[2016-11-14 07:57] LABS: POINT-OF-CARE METER ID UU13113698
[2016-11-14 09:46] LABS: HEMATOCRIT 34.4 % (36.0-46.0); MCH 25.9 PG (29.0-34.0); MCHC 30.5 G/DL (30.0-36.0); MCV 84.7 FL (83-99); MEAN PLAT.VOLUME 9.9 uM^3 (9.5-12.4); PLATELET COUNT 332 K/uL (156-360); RBC DIS.WIDTH-CV 14.7 % (11.8-14.6); RBC DIS.WIDTH-SD 45.4 % (39-53); RED BLOOD COUNT 4.06 M/uL (3.80-5.20); WHITE BLOOD COUNT 17.8 K/uL (4.1-10.2)
[2016-11-14 10:06] LABS: ANION GAP 10 MEQ/L (2-14); CHLORIDE 101 MEQ/L (99-109); GFR ESTIMATE (CALCULATED) > 59 mL/min/; GLUCOSE 159 mg/dL (70-99); POTASSIUM 3.5 MEQ/L (3.7-5.4); SAMPLE HEMOLYSIS CHECK 0; SAMPLE ICTERIC CHECK 0; SAMPLE LIPEMIA CHECK 0; SODIUM 141 MEQ/L (136-147); UREA NITROGEN (BUN) 13 mg/dL (9-23)
[2016-11-14 12:07] VITALS: BP 130/87
[2016-11-14 12:57] LABS: POINT-OF-CARE METER ID UU13113698
[2016-11-14 16:26] LABS: POINT-OF-CARE METER ID UU13113698
[2016-11-14 16:30] VITALS: BP 170/76
[2016-11-14 19:30] VITALS: BP 137/90
[2016-11-14 20:41] LABS: POINT-OF-CARE METER ID UU14174216
[2016-11-15] VITALS (7 sets, daily range): BP systolic 106–146; BP diastolic 56–79
[2016-11-15 09:47] LABS: HEMATOCRIT 37.4 % (36.0-46.0); MCH 26.3 PG (29.0-34.0); MCV 84.8 FL (83-99); MEAN PLAT.VOLUME 9.9 uM^3 (9.5-12.4); PLATELET COUNT 367 K/uL (156-360); RBC DIS.WIDTH-CV 14.6 % (11.8-14.6); RBC DIS.WIDTH-SD 45.1 % (39-53); RED BLOOD COUNT 4.41 M/uL (3.80-5.20); WHITE BLOOD COUNT 11.7 K/uL (4.1-10.2)
[2016-11-15 10:06] LABS: ANION GAP 6 MEQ/L (2-14); CHLORIDE 97 MEQ/L (99-109); POTASSIUM 3.6 MEQ/L (3.7-5.4); SAMPLE HEMOLYSIS CHECK 0; SAMPLE ICTERIC CHECK 0; SAMPLE LIPEMIA CHECK 0; SODIUM 141 MEQ/L (136-147)
[2016-11-15 10:12] LABS: GFR ESTIMATE (CALCULATED) > 59 mL/min/; UREA NITROGEN (BUN) 13 mg/dL (9-23)
[2016-11-15 10:15] LABS: GLUCOSE 116 mg/dL (70-99)
[2016-11-15 21:16] LABS: POINT-OF-CARE METER ID UU14174216
[2016-11-16 05:22] VITALS: BP 156/71
[2016-11-16 07:40] LABS: POINT-OF-CARE METER ID UU13113781
[2016-11-16 09:00] VITALS: BP 126/86
[2016-11-16 11:29] LABS: POINT-OF-CARE METER ID UU13113781
[2016-11-16 12:30] VITALS: BP 123/76
[2016-11-16 14:49] LABS: HEMATOCRIT 36.4 % (36.0-46.0); MCH 25.5 PG (29.0-34.0); MCHC 30.5 G/DL (30.0-36.0); MCV 83.5 FL (83-99); PLATELET COUNT 358 K/uL (156-360); RBC DIS.WIDTH-CV 14.1 % (11.8-14.6); RBC DIS.WIDTH-SD 43.3 % (39-53); RED BLOOD COUNT 4.36 M/uL (3.80-5.20)
[2016-11-16 15:18] LABS: ANION GAP 7 MEQ/L (2-14); CHLORIDE 94 MEQ/L (99-109); GFR ESTIMATE (CALCULATED) > 59 mL/min/; GLUCOSE 293 mg/dL (70-99); POTASSIUM 4.3 MEQ/L (3.7-5.4); SAMPLE HEMOLYSIS CHECK 0; SAMPLE ICTERIC CHECK 0; SAMPLE LIPEMIA CHECK 0; SODIUM 130 MEQ/L (136-147); UREA NITROGEN (BUN) 20 mg/dL (9-23)
[2016-11-16 16:08] LABS: POINT-OF-CARE METER ID UU14174216
[2016-11-16 19:20] VITALS: BP 143/67
[2016-11-16 21:19] LABS: POINT-OF-CARE METER ID UU13113698
[2016-11-17 00:20] VITALS: BP 139/67
[2016-11-17 04:00] VITALS: BP 145/78
[2016-11-17 08:00] VITALS: BP 159/69
[2016-11-17 08:09] LABS: POINT-OF-CARE METER ID UU13113698; POINT-OF-CARE USER ID NUTSLF44
[2016-11-17 11:52] LABS: POINT-OF-CARE METER ID UU13113781; POINT-OF-CARE USER ID NUTSLF44
[2016-11-17 12:30] VITALS: BP 108/53
[2016-11-17 16:32] VITALS: BP 109/62
[2016-11-17 17:45] LABS: POINT-OF-CARE METER ID UU13113781; POINT-OF-CARE USER ID NUTSLF44
[2016-11-17 19:30] VITALS: BP 138/71
[2016-11-17 21:10] LABS: POINT-OF-CARE METER ID UU13113781
[2016-11-18] VITALS: BP 150/71
[2016-11-18 05:45] VITALS: BP 146/70
[2016-11-18 08:31] LABS: POINT-OF-CARE METER ID UU13113698; POINT-OF-CARE USER ID ENVKC36
[2016-11-18 09:00] VITALS: BP 137/87
[2016-11-18 11:56] LABS: POINT-OF-CARE METER ID UU13113698; POINT-OF-CARE USER ID ENVKC36
[2016-11-18 13:00] VITALS: BP 94/58
[2016-11-18 16:34] LABS: POINT-OF-CARE METER ID UU13113698; POINT-OF-CARE USER ID ENVKC36
[2016-11-18 17:31] VITALS: BP 164/74
[2016-11-18 19:25] VITALS: BP 132/63
[2016-11-18 20:50] LABS: POINT-OF-CARE METER ID UU13113698
[2016-11-19] VITALS: BP 161/63
[2016-11-19 05:30] VITALS: BP 141/69
[2016-11-19 07:27] VITALS: BP 128/94
[2016-11-19 08:15] LABS: POINT-OF-CARE USER ID ENVKC36
[2016-11-19] MEDS ORDERED: PREDNISONE10 MG PO (08:37)
[2016-11-19] MEDS ORDERED: CORDARONE200 MG PO (08:37)
[2016-11-19] MEDS ORDERED: DOXYCYCLINE HY100 M3 PO (08:37)
[2016-11-19 11:40] VITALS: BP 91/53
[2016-11-19 11:56] LABS: POINT-OF-CARE USER ID ENVKC36
== END 2016-11-19 13:34 | disposition home or self-care (01) | DRG 308 ==
LOC: EME 10:16 → EDBD 10:16 → EME 10:16 → 4EAST 15:24 → EDOF 15:24 → 4EAST 18:19
PROVIDERS: Emergency Medicine; Hospitalist; Internal Medicine; Physician Assistant
PROC: 05H633Z Insertion of Infusion Device into Left Subclavian Vein, Percutaneous Approach (ICD-10-PCS; principal; 2016-11-14)
DX: I48.0 Paroxysmal atrial fibrillation (principal); J18.9 Pneumonia, unspecified organism; G91.2 (Idiopathic) normal pressure hydrocephalus; J44.0 Chronic obstructive pulmonary disease with (acute) lower respiratory infection; J96.10 Chronic respiratory failure, unspecified whether with hypoxia or hypercapnia; J44.1 Chronic obstructive pulmonary disease with (acute) exacerbation; J20.9 Acute bronchitis, unspecified; I25.10 Atherosclerotic heart disease of native coronary artery without angina pectoris; R00.0 Tachycardia, unspecified; K21.9 Gastro-esophageal reflux disease without esophagitis; F32.9 Major depressive disorder, single episode, unspecified; F41.9 Anxiety disorder, unspecified; E78.5 Hyperlipidemia, unspecified; E87.6 Hypokalemia; E66.9 Obesity, unspecified; I27.2 Other secondary pulmonary hypertension; I11.0 Hypertensive heart disease with heart failure; E11.65 Type 2 diabetes mellitus with hyperglycemia; Z88.1 Allergy status to other antibiotic agents; Z88.2 Allergy status to sulfonamides; Z88.8 Allergy status to other drugs, medicaments and biological substances; Z79.01 Long term (current) use of anticoagulants; Z68.28 Body mass index [BMI] 28.0-28.9, adult; Z98.2 Presence of cerebrospinal fluid drainage device; Z99.81 Dependence on supplemental oxygen; Z87.891 Personal history of nicotine dependence; Z79.4 Long term (current) use of insulin
CPT/HCPCS: 71010; 71020; 76937; 80048; 82948; 84443; 84484; 85025; 85027; 85610; 85730; 93005; 93970; 93971; 94640; 94640 76; 94760; 94799; 97530 GP; 99202; 99281; 99285; C1753; J1100; J1160; J1815; J1940; J7050; J7512; J7644

== ENCOUNTER 2017-03-21 12:36 | Inpatient (IN) | payer OTHER ==
[~2017-03-21] VITALS: Ht 154.9 cm; Wt 79.4 kg
[~2017-03-21 12:36] MED LIST changes: +CORDARONE200 MG PO; +KLOR-CON M1010 MEQ PO; +LANTUS 3 M100 UNITS1 SC; +LASIX20 MG PO; +LASIX40 MG PO
[2017-03-21 13:30] LABS: HEMATOCRIT 35.3 % (36.0-46.0); MCH 26.7 PG (29.0-34.0); MCHC 31.2 G/DL (30.0-36.0); MCV 85.7 FL (83-99); MEAN PLAT.VOLUME 10.1 uM^3 (9.5-12.4); PLATELET COUNT 260 K/uL (156-360); RBC DIS.WIDTH-CV 14.6 % (11.8-14.6); RBC DIS.WIDTH-SD 45.6 % (39-53); RED BLOOD COUNT 4.12 M/uL (3.80-5.20); WHITE BLOOD COUNT 6.6 K/uL (4.1-10.2)
[2017-03-21 13:39] LABS: CHLORIDE 103 mEq/L (99-109); POTASSIUM 3.7 mEq/L (3.7-5.4)
[2017-03-21 13:40] LABS: SODIUM 141 mEq/L (136-147)
[2017-03-21 13:41] LABS: GLUCOSE 206 mg/dL (70-99)
[2017-03-21 13:43] LABS: ANION GAP 11 MEQ/L (2-14)
[2017-03-21 13:45] LABS: GFR ESTIMATE (CALCULATED) > 59 mL/min/
[2017-03-21 13:46] LABS: UREA NITROGEN (BUN) 19 mg/dL (9-23)
[2017-03-21 14:34] LABS: ADD MIUA? YES; BILIRUBIN NEGATIVE; BLOOD LARGE; COLOR YELLOW ((YELLOW)); GLUCOSE (STRIP) NEGATIVE; KETONES NEGATIVE; LEUKOCYTES NEGATIVE; NITRITE NEGATIVE; PROTEIN (STRIP) NEGATIVE; SPECIFIC GRAVITY 1.011 (1.000-1.030); UROBILINOGEN 0.2 MG/DL (0.2-1.0)
[2017-03-21 14:48] LABS: BACTERIA RARE /HPF; EPITHELIAL CELLS RARE /HPF; HYALINE CASTS 0-5 /LPF; MUCUS TRACE /LPF; RED BLOOD CELLS 0-5 /HPF (0-5); UCUL ADDED? NO; WHITE BLOOD CELLS 0-5 /HPF (0-5)
[2017-03-21] MEDS ORDERED: LOPRESSOR50 MG PO (17:18)
[2017-03-21] MEDS ORDERED: LEVEMIR100 UNIT/2 SC ×2 (17:26→17:27)
[2017-03-21] MEDS ORDERED: DONEPEZIL HCL5 MG PO (17:33)
[2017-03-21] MEDS ORDERED: SERTRALINE HCL50 MG PO (17:33)
[2017-03-21] MEDS ORDERED: EYE DROP BOTH EYES (17:40)
[2017-03-21 18:10] VITALS: BP 137/67
[2017-03-21 19:15] VITALS: BP 156/65
[2017-03-21 19:52] LABS: HEMATOCRIT 35.7 % (36.0-46.0)
[2017-03-21 21:47] LABS: POINT-OF-CARE METER ID UU13113831
[2017-03-22 00:25] VITALS: BP 150/67
[2017-03-22 03:59] VITALS: BP 158/56; BP 167/72
[2017-03-22 08:10] VITALS: BP 154/97
[2017-03-22 09:11] LABS: HEMATOCRIT 36.6 % (36.0-46.0); MCV 85.1 FL (83-99)
[2017-03-22 09:36] LABS: ANION GAP 6 MEQ/L (2-14); CHLORIDE 105 MEQ/L (99-109); GFR ESTIMATE (CALCULATED) > 59 mL/min/; POTASSIUM 3.7 MEQ/L (3.7-5.4); SAMPLE HEMOLYSIS CHECK 0; SAMPLE ICTERIC CHECK 0; SAMPLE LIPEMIA CHECK 0; SODIUM 140 MEQ/L (136-147); UREA NITROGEN (BUN) 10 mg/dL (9-23)
[2017-03-22 09:41] LABS: GLUCOSE 79 mg/dL (70-99)
[2017-03-22 11:48] VITALS: BP 178/68
[2017-03-22 12:48] LABS: POINT-OF-CARE METER ID UU13113831
[2017-03-22 15:13] LABS: POINT-OF-CARE METER ID UU13113675
[2017-03-22 17:45] LABS: POINT-OF-CARE METER ID UU13113831
[2017-03-22 18:50] VITALS: BP 139/63
[2017-03-22 21:37] LABS: POINT-OF-CARE METER ID UU13113831
[2017-03-23] VITALS (8 sets, daily range): BP systolic 105–194; BP diastolic 52–79
[2017-03-23 06:35] LABS: HEMATOCRIT 34.7 % (36.0-46.0); MCH 26.8 PG (29.0-34.0); MCHC 31.1 G/DL (30.0-36.0); MCV 86.1 FL (83-99); MEAN PLAT.VOLUME 10.1 uM^3 (9.5-12.4); PLATELET COUNT 245 K/uL (156-360); RBC DIS.WIDTH-CV 14.5 % (11.8-14.6); RBC DIS.WIDTH-SD 45.4 % (39-53); RED BLOOD COUNT 4.03 M/uL (3.80-5.20); WHITE BLOOD COUNT 18.3 K/uL (4.1-10.2)
[2017-03-23 07:02] LABS: ANION GAP 9 MEQ/L (2-14); CHLORIDE 102 MEQ/L (99-109); GFR ESTIMATE (CALCULATED) > 59 mL/min/; SAMPLE HEMOLYSIS CHECK 0; SAMPLE ICTERIC CHECK 0; SAMPLE LIPEMIA CHECK 0; SODIUM 141 MEQ/L (136-147); UREA NITROGEN (BUN) 14 mg/dL (9-23)
[2017-03-23 07:04] LABS: GLUCOSE 203 mg/dL (70-99)
[2017-03-23 12:49] LABS: POINT-OF-CARE METER ID UU13113831
[2017-03-24 03:42] VITALS: BP 113/54
[2017-03-24 05:35] LABS: HEMATOCRIT 31.4 % (36.0-46.0); MCH 26.9 PG (29.0-34.0); MCHC 30.9 G/DL (30.0-36.0); MCV 87.2 FL (83-99); MEAN PLAT.VOLUME 10.3 uM^3 (9.5-12.4); PLATELET COUNT 240 K/uL (156-360); RBC DIS.WIDTH-CV 14.6 % (11.8-14.6); RBC DIS.WIDTH-SD 47.2 % (39-53); WHITE BLOOD COUNT 8.5 K/uL (4.1-10.2)
[2017-03-24 06:00] LABS: ANION GAP 6 MEQ/L (2-14); CHLORIDE 106 MEQ/L (99-109); GFR ESTIMATE (CALCULATED) > 59 mL/min/; GLUCOSE 133 mg/dL (70-99); POTASSIUM 3.6 MEQ/L (3.7-5.4); SAMPLE HEMOLYSIS CHECK 0; SAMPLE ICTERIC CHECK 0; SAMPLE LIPEMIA CHECK 0; SODIUM 146 MEQ/L (136-147); UREA NITROGEN (BUN) 15 mg/dL (9-23)
[2017-03-24 07:48] VITALS: BP 135/60
[2017-03-24 08:43] LABS: POINT-OF-CARE METER ID UU13113831
[2017-03-24 12:24] VITALS: BP 134/64
[2017-03-24 13:19] LABS: POINT-OF-CARE METER ID UU13113831
[2017-03-24 15:02] LABS: POINT-OF-CARE METER ID UU14107333
[2017-03-24 16:30] VITALS: BP 180/68
[2017-03-24 17:45] LABS: POINT-OF-CARE METER ID UU13113831
[2017-03-24 20:26] VITALS: BP 141/58
[2017-03-25 00:34] VITALS: BP 118/59
[2017-03-25 05:32] LABS: HEMATOCRIT 31.7 % (36.0-46.0); MCH 27.3 PG (29.0-34.0); MCHC 31.5 G/DL (30.0-36.0); MCV 86.6 FL (83-99); MEAN PLAT.VOLUME 9.8 uM^3 (9.5-12.4); PLATELET COUNT 240 K/uL (156-360); RBC DIS.WIDTH-CV 14.6 % (11.8-14.6); RBC DIS.WIDTH-SD 46.9 % (39-53); RED BLOOD COUNT 3.66 M/uL (3.80-5.20)
[2017-03-25 05:56] VITALS: BP 142/89
[2017-03-25 07:54] VITALS: BP 137/60
[2017-03-25 08:38] LABS: POINT-OF-CARE METER ID UU13113831
[2017-03-25 11:38] VITALS: BP 164/70
[2017-03-25 12:35] LABS: POINT-OF-CARE METER ID UU13113831
[2017-03-25 15:50] VITALS: BP 175/77
[2017-03-25 17:52] LABS: POINT-OF-CARE METER ID UU13113831
[2017-03-25 19:40] VITALS: BP 145/71
[2017-03-25 21:42] LABS: POINT-OF-CARE METER ID UU13113831
[2017-03-26] VITALS (8 sets, daily range): BP systolic 101–195; BP diastolic 52–79
[2017-03-26 05:43] LABS: EOSINOPHIL (%) 1.8 % (0-5); EOSINOPHIL COUNT 0.2 K/uL (0-0.3); HEMATOCRIT 31.6 % (36.0-46.0); IMMATURE GRANULOCYTE (%) 0.2 % (0.0-0.7); INSTRUMENT ABS NEUTROPHIL CT 7.7 K/uL; LYMPHOCYTE COUNT 1.6 K/uL (1.0-2.8); MCH 26.1 PG (29.0-34.0); MCHC 30.7 G/DL (30.0-36.0); MCV 84.9 FL (83-99); MEAN PLAT.VOLUME 9.7 uM^3 (9.5-12.4); MONOCYTE (%) 8.6 % (3-12); MONOCYTE COUNT 0.9 K/uL (0-0.8); NEUTROPHIL (%) 73.6 % (45-76); NEUTROPHIL COUNT 7.7 K/uL (1.8-6.4); PLATELET COUNT 243 K/uL (156-360); RBC DIS.WIDTH-CV 14.1 % (11.8-14.6); RED BLOOD COUNT 3.72 M/uL (3.80-5.20); WHITE BLOOD COUNT 10.4 K/uL (4.1-10.2)
[2017-03-26 06:46] LABS: ANION GAP 8 MEQ/L (2-14); CHLORIDE 102 MEQ/L (99-109); GFR ESTIMATE (CALCULATED) > 59 mL/min/; GLUCOSE 141 mg/dL (70-99); POTASSIUM 2.9 MEQ/L (3.7-5.4); SAMPLE HEMOLYSIS CHECK 0; SAMPLE ICTERIC CHECK 0; SAMPLE LIPEMIA CHECK 0; SODIUM 141 MEQ/L (136-147); UREA NITROGEN (BUN) 5 mg/dL (9-23)
[2017-03-26 09:14] LABS: POINT-OF-CARE METER ID UU13113831
[2017-03-26 13:07] LABS: POINT-OF-CARE METER ID UU13113831
[2017-03-27 04:35] VITALS: BP 176/52
[2017-03-27 05:32] LABS: EOSINOPHIL (%) 1.7 % (0-5); EOSINOPHIL COUNT 0.2 K/uL (0-0.3); HEMATOCRIT 30.9 % (36.0-46.0); IMMATURE GRANULOCYTE (%) 0.4 % (0.0-0.7); INSTRUMENT ABS NEUTROPHIL CT 6.7 K/uL; LYMPHOCYTE COUNT 1.5 K/uL (1.0-2.8); MCH 26.7 PG (29.0-34.0); MCHC 31.1 G/DL (30.0-36.0); MCV 86.1 FL (83-99); MEAN PLAT.VOLUME 9.8 uM^3 (9.5-12.4); MONOCYTE (%) 10.9 % (3-12); NEUTROPHIL COUNT 6.7 K/uL (1.8-6.4); PLATELET COUNT 241 K/uL (156-360); RBC DIS.WIDTH-CV 14.6 % (11.8-14.6); RBC DIS.WIDTH-SD 45.6 % (39-53); RED BLOOD COUNT 3.59 M/uL (3.80-5.20); WHITE BLOOD COUNT 9.5 K/uL (4.1-10.2)
[2017-03-27 05:58] LABS: ANION GAP 6 MEQ/L (2-14); CHLORIDE 104 MEQ/L (99-109); GFR ESTIMATE (CALCULATED) > 59 mL/min/; GLUCOSE 122 mg/dL (70-99); POTASSIUM 3.4 MEQ/L (3.7-5.4); SAMPLE HEMOLYSIS CHECK 0; SAMPLE ICTERIC CHECK 0; SAMPLE LIPEMIA CHECK 0; SODIUM 141 MEQ/L (136-147); UREA NITROGEN (BUN) 9 mg/dL (9-23)
[2017-03-27 08:00] VITALS: BP 182/62
[2017-03-27 08:11] LABS: POINT-OF-CARE METER ID UU13113831
[2017-03-27 10:53] VITALS: BP 178/54
[2017-03-27 13:21] LABS: POINT-OF-CARE METER ID UU13113831
[2017-03-27 15:35] VITALS: BP 130/61
[2017-03-27 17:51] LABS: POINT-OF-CARE METER ID UU13113831
[2017-03-27 20:30] VITALS: BP 168/58
[2017-03-27 21:10] LABS: ALKALINE PHOSPHATASE 54 IU/L (3-129); ANION GAP 7 MEQ/L (2-14); CHLORIDE 105 MEQ/L (99-109); GFR ESTIMATE (CALCULATED) > 59 mL/min/; GLUCOSE 164 mg/dL (70-99); MAGNESIUM 1.3 mg/dl (1.3-2.7); POTASSIUM 3.8 MEQ/L (3.7-5.4); SAMPLE HEMOLYSIS CHECK 0; SAMPLE ICTERIC CHECK 0; SAMPLE LIPEMIA CHECK 0; SODIUM 141 MEQ/L (136-147); TOTAL BILIRUBIN 0.6 MG/DL (0.0-1.0); UREA NITROGEN (BUN) 12 mg/dL (9-23)
[2017-03-27 21:42] LABS: BASE EXCESS 7.3 mEq/L (-3 to +3); CARBOXY HGB 1.9 % (0-5); COMMENTS - BLOOD GASES C+; DEVICE NC; METHEMOGLOBIN 1.3 % (0-1.5); O2 FLOW 4 L/MIN; PCO2 45 mm Hg (35-45); PO2 52 mm Hg (80-100); SITE RR; TOTAL RESP RATE 16 resp/min; pH 7.46 (7.35-7.45)
[2017-03-28] VITALS (7 sets, daily range): BP systolic 105–161; BP diastolic 57–67
[2017-03-28 09:25] LABS: POINT-OF-CARE METER ID UU14174225
[2017-03-28 12:03] LABS: POINT-OF-CARE METER ID UU14174225
[2017-03-28 17:17] LABS: POINT-OF-CARE METER ID UU14188625
[2017-03-28 21:23] LABS: POINT-OF-CARE METER ID UU13113717
[2017-03-29] VITALS (7 sets, daily range): BP systolic 116–182; BP diastolic 56–78
[2017-03-29 06:57] LABS: EOSINOPHIL (%) 0 % (0-5); IMMATURE GRANULOCYTE (%) 0.5 % (0.0-0.7); IMMATURE GRANULOCYTE COUNT 0.1 K/uL; INSTRUMENT ABS NEUTROPHIL CT 14.9 K/uL; LYMPHOCYTE COUNT 0.6 K/uL (1.0-2.8); MCH 26.2 PG (29.0-34.0); MCHC 30.8 G/DL (30.0-36.0); MCV 85.1 FL (83-99); MEAN PLAT.VOLUME 9.9 uM^3 (9.5-12.4); MONOCYTE COUNT 0.8 K/uL (0-0.8); NEUTROPHIL (%) 90.7 % (45-76); NEUTROPHIL COUNT 14.9 K/uL (1.8-6.4); PLATELET COUNT 270 K/uL (156-360); RBC DIS.WIDTH-CV 14.6 % (11.8-14.6); WHITE BLOOD COUNT 16.4 K/uL (4.1-10.2)
[2017-03-29 07:07] LABS: ANION GAP 10 MEQ/L (2-14); CHLORIDE 101 MEQ/L (99-109); GFR ESTIMATE (CALCULATED) > 59 mL/min/; POTASSIUM 3.8 MEQ/L (3.7-5.4); SAMPLE HEMOLYSIS CHECK 1; SAMPLE ICTERIC CHECK 0; SAMPLE LIPEMIA CHECK 0; SODIUM 139 MEQ/L (136-147)
[2017-03-29 07:13] LABS: GLUCOSE 264 mg/dL (70-99); MAGNESIUM 1.5 mg/dl (1.3-2.7); UREA NITROGEN (BUN) 23 mg/dL (9-23)
[2017-03-29 07:22] LABS: RED BLOOD COUNT 4.35 M/uL (3.80-5.20)
[2017-03-29 11:58] LABS: POINT-OF-CARE METER ID UU13113717
[2017-03-29 16:54] LABS: POINT-OF-CARE METER ID UU14174225
[2017-03-29 21:31] LABS: POINT-OF-CARE METER ID UU13113717
[2017-03-30 03:29] VITALS: BP 166/72
[2017-03-30 08:13] VITALS: BP 149/76
[2017-03-30 08:35] LABS: EOSINOPHIL (%) 0 % (0-5); HEMATOCRIT 31.3 % (36.0-46.0); IMMATURE GRANULOCYTE (%) 0.9 % (0.0-0.7); IMMATURE GRANULOCYTE COUNT 0.1 K/uL; INSTRUMENT ABS NEUTROPHIL CT 12.9 K/uL; LYMPHOCYTE COUNT 1.2 K/uL (1.0-2.8); MCH 26.8 PG (29.0-34.0); MCHC 31.6 G/DL (30.0-36.0); MCV 84.6 FL (83-99); MEAN PLAT.VOLUME 9.6 uM^3 (9.5-12.4); MONOCYTE (%) 6.3 % (3-12); NEUTROPHIL (%) 84.9 % (45-76); NEUTROPHIL COUNT 12.9 K/uL (1.8-6.4); RBC DIS.WIDTH-CV 14.8 % (11.8-14.6); RBC DIS.WIDTH-SD 45.7 % (39-53); WHITE BLOOD COUNT 15.1 K/uL (4.1-10.2)
[2017-03-30 08:49] LABS: PLATELET COUNT 373 K/uL (156-360)
[2017-03-30 09:01] LABS: ANION GAP 8 MEQ/L (2-14); CHLORIDE 104 MEQ/L (99-109); GFR ESTIMATE (CALCULATED) > 59 mL/min/; GLUCOSE 220 mg/dL (70-99); POTASSIUM 3.8 MEQ/L (3.7-5.4); SAMPLE HEMOLYSIS CHECK 0; SAMPLE ICTERIC CHECK 0; SAMPLE LIPEMIA CHECK 0; SODIUM 144 MEQ/L (136-147); UREA NITROGEN (BUN) 29 mg/dL (9-23)
[2017-03-30 16:14] VITALS: BP 119/78
[2017-03-30 17:19] LABS: POINT-OF-CARE METER ID UU14174225
[2017-03-30 21:13] LABS: POINT-OF-CARE METER ID UU14174225; POINT-OF-CARE USER ID 603211116
[2017-03-31 00:09] VITALS: BP 153/63
[2017-03-31 07:20] LABS: POINT-OF-CARE METER ID UU13113717
[2017-03-31 07:30] VITALS: BP 136/72
[2017-03-31 09:36] LABS: EOSINOPHIL (%) 0 % (0-5); HEMATOCRIT 32.8 % (36.0-46.0); IMMATURE GRANULOCYTE (%) 1.4 % (0.0-0.7); IMMATURE GRANULOCYTE COUNT 0.2 K/uL; INSTRUMENT ABS NEUTROPHIL CT 10.3 K/uL; LYMPHOCYTE COUNT 1.7 K/uL (1.0-2.8); MCH 26.9 PG (29.0-34.0); MCHC 31.7 G/DL (30.0-36.0); MEAN PLAT.VOLUME 9.4 uM^3 (9.5-12.4); MONOCYTE (%) 7.4 % (3-12); NEUTROPHIL (%) 78.2 % (45-76); NEUTROPHIL COUNT 10.3 K/uL (1.8-6.4); PLATELET COUNT 382 K/uL (156-360); RBC DIS.WIDTH-CV 14.6 % (11.8-14.6); RBC DIS.WIDTH-SD 45.2 % (39-53); RED BLOOD COUNT 3.86 M/uL (3.80-5.20); WHITE BLOOD COUNT 13.2 K/uL (4.1-10.2)
[2017-03-31 09:55] LABS: ANION GAP 9 MEQ/L (2-14); CHLORIDE 105 MEQ/L (99-109); GFR ESTIMATE (CALCULATED) > 59 mL/min/; GLUCOSE 200 mg/dL (70-99); SAMPLE HEMOLYSIS CHECK 0; SAMPLE ICTERIC CHECK 0; SAMPLE LIPEMIA CHECK 0; SODIUM 144 MEQ/L (136-147); UREA NITROGEN (BUN) 25 mg/dL (9-23)
[2017-03-31 11:48] LABS: POINT-OF-CARE METER ID UU13113717
[2017-03-31 15:49] VITALS: BP 121/68
[2017-03-31 17:13] LABS: POINT-OF-CARE METER ID UU14188625
[2017-03-31 18:42] LABS: Estimated Average Glucose 148 mg/dL (70-123); HEMOGLOBIN A1c (GLYCOHEMOGLOB) 6.8 % HGB (Below 5.7)
[2017-03-31 21:01] LABS: POINT-OF-CARE METER ID UU14188625
[2017-03-31 23:27] VITALS: BP 163/70
[2017-04-01 05:29] VITALS: BP 149/65
[2017-04-01 06:09] LABS: HEMATOCRIT 33.6 % (36.0-46.0); MCH 26.1 PG (29.0-34.0); MCV 84.2 FL (83-99); MEAN PLAT.VOLUME 9.5 uM^3 (9.5-12.4); PLATELET COUNT 434 K/uL (156-360); RBC DIS.WIDTH-CV 14.4 % (11.8-14.6); RBC DIS.WIDTH-SD 44.5 % (39-53); RED BLOOD COUNT 3.99 M/uL (3.80-5.20)
[2017-04-01 06:52] LABS: POINT-OF-CARE METER ID UU14174225
[2017-04-01 07:08] VITALS: BP 163/72
[2017-04-01 11:24] LABS: POINT-OF-CARE METER ID UU14188625
[2017-04-01] MEDS ORDERED: DOCUSATE SODIU100 MG PO (13:53)
[2017-04-01] MEDS ORDERED: TRAMADOL HCL50 MG PO (13:53)
[2017-04-01] MEDS ORDERED: PREDNISONE10 MG PO (13:53)
[2017-04-01] MEDS ORDERED: HYDRALAZINE HCL50 MG PO (13:53)
[2017-04-01 15:20] VITALS: BP 117/55
[2017-04-01 16:27] LABS: POINT-OF-CARE METER ID UU14188625
== END 2017-04-01 17:32 | DRG 377 ==
LOC: EME 12:36 → EDOF 16:26 → CANRESERV 16:27 → ENRESERV 16:27 → 5WEST 17:31 → ENRESERV 03-22 15:02 → CANRESERV 03-22 15:02 → ENRESERV 03-22 15:11 → CANRESERV 03-22 15:11 → ENRESERV 03-27 21:23 → 5SOUTH 03-28 00:10 → 5WEST 03-28 00:10 → 5SOUTH 04-01 17:32
PROVIDERS: Family Medicine; Hospitalist; Internal Medicine; Internal Medicine Gastroenterology; Physician Assistant; Physician Assistant Medical
PROC: 0DB68ZX Excision of Stomach, Via Natural or Artificial Opening Endoscopic, Diagnostic (ICD-10-PCS; principal; 2017-03-22)
PROC: 0DJD8ZZ Inspection of Lower Intestinal Tract, Via Natural or Artificial Opening Endoscopic (ICD-10-PCS; 2017-03-24)
DX: K92.1 Melena (principal); J96.21 Acute and chronic respiratory failure with hypoxia; I11.0 Hypertensive heart disease with heart failure; I50.33 Acute on chronic diastolic (congestive) heart failure; J44.1 Chronic obstructive pulmonary disease with (acute) exacerbation; D64.9 Anemia, unspecified; K29.70 Gastritis, unspecified, without bleeding; K57.30 Diverticulosis of large intestine without perforation or abscess without bleeding; T80.29XA Infection following other infusion, transfusion and therapeutic injection, initial encounter; L03.116 Cellulitis of left lower limb; S90.822A Blister (nonthermal), left foot, initial encounter; Y84.8 Other medical procedures as the cause of abnormal reaction of the patient, or of later complication, without mention of misadventure at the time of the procedure; E87.6 Hypokalemia; E87.3 Alkalosis; I48.2 Chronic atrial fibrillation; J98.11 Atelectasis; E11.649 Type 2 diabetes mellitus with hypoglycemia without coma; E78.5 Hyperlipidemia, unspecified; K21.9 Gastro-esophageal reflux disease without esophagitis; K22.70 Barrett's esophagus without dysplasia; F32.9 Major depressive disorder, single episode, unspecified; E66.9 Obesity, unspecified; Z68.33 Body mass index [BMI] 33.0-33.9, adult; Z99.81 Dependence on supplemental oxygen; Z79.01 Long term (current) use of anticoagulants; Z79.4 Long term (current) use of insulin; Z88.1 Allergy status to other antibiotic agents; Z88.2 Allergy status to sulfonamides; Z87.891 Personal history of nicotine dependence
CPT/HCPCS: 36600; 71010; 71020; 71250; 73630; 74177; 74280; 78582; 80048; 80053; 80069; 80202; 81003; 82803; 82948; 83036; 83605; 83735; 83880; 85014; 85018; 85025; 85027; 86850; 86900; 86901; 87040; 87070; 87205; 88305; 88342 TC; 93005; 93970; 94640 76; 94760; 94799; 97530 GO; 97530 GP; 99202; 99281; 99285; A6212; A9540; A9567; C1753; C9113; G0378; J0360; J1815; J1940; J2405; J2543; J2930; J3010; J3370; J3480; J7030; J7042; J7050; J7512; J7626

== ENCOUNTER 2017-10-30 12:28 | Inpatient (IN) | payer OTHER ==
[2017-10-30] VITALS (8 sets, daily range): BP systolic 129–160; BP diastolic 57–98
[~2017-10-30] VITALS: Ht 157.5 cm; Wt 72.9 kg
[~2017-10-30 12:28] MED LIST changes: +DOCUSATE SODIU100 MG PO; +DONEPEZIL HCL5 MG PO; +EYE DROP BOTH EYES; +HYDRALAZINE HCL50 MG PO; +LEVEMIR100 UNIT/2 SC; +LOPRESSOR50 MG PO; +SERTRALINE HCL50 MG PO
[2017-10-30 13:11] LABS: HEMATOCRIT 38.8 % (36.0-46.0); HEMOGLOBIN 12.1 G/DL (11.9-15.5); MCH 25.6 PG (29.0-34.0); MCHC 31.2 G/DL (30.0-36.0); PLATELET COUNT 272 K/uL (156-360); RBC DIS.WIDTH-CV 17.3 % (11.8-14.6); RBC DIS.WIDTH-SD 51.5 % (39-53); RED BLOOD COUNT 4.73 M/uL (3.80-5.20); WHITE BLOOD COUNT 8.2 K/uL (4.1-10.2)
[2017-10-30 13:22] LABS: CHLORIDE 103 mEq/L (99-109); POTASSIUM 4.4 mEq/L (3.7-5.4); SODIUM 142 mEq/L (136-147)
[2017-10-30 13:24] LABS: GLUCOSE 93 mg/dL (70-99)
[2017-10-30 13:28] LABS: CREATININE 0.9 mg/dL (0.6-1.3); GFR ESTIMATE (CALCULATED) > 59 mL/min/
[2017-10-30 13:29] LABS: UREA NITROGEN (BUN) 20 mg/dL (9-23)
[2017-10-30 13:32] LABS: TROP-I INTERPRETATION NEGATIVE; TROPONIN-I 0.01 ng/mL (0.0-0.30)
[2017-10-30 13:56] LABS: INTER. NORMALIZED RATIO 1.8
[2017-10-30 20:20] LABS: HEMATOCRIT 31.7 % (36.0-46.0); MCV 82.6 FL (83-99)
[2017-10-30 20:21] LABS: HEMOGLOBIN 9.8 G/DL (11.9-15.5)
[2017-10-31 04:00] VITALS: BP 130/60
[2017-10-31 05:12] LABS: HEMATOCRIT 32.6 % (36.0-46.0); HEMOGLOBIN 9.9 G/DL (11.9-15.5); MCV 83.2 FL (83-99)
[2017-10-31 05:57] LABS: CHLORIDE 105 MEQ/L (99-109); CREATININE 0.8 MG/DL (0.6-1.3); GFR ESTIMATE (CALCULATED) > 59 mL/min/; POTASSIUM 3.7 MEQ/L (3.7-5.4); SODIUM 141 MEQ/L (136-147); UREA NITROGEN (BUN) 14 mg/dL (9-23)
[2017-10-31 06:01] LABS: GLUCOSE 118 mg/dL (70-99)
[2017-10-31 07:56] VITALS: BP 136/68
[2017-10-31] MEDS ORDERED: VITAMIN D31000 UNIT PO (09:12)
[2017-10-31] MEDS ORDERED: LOPRESSOR50 MG PO (09:12)
[2017-10-31] MEDS ORDERED: DUONEB 2.5-0.5 M3 ML AEROSOL (09:21)
[2017-10-31] MEDS ORDERED: VITAMIN B122500 MCG SL (09:21)
[2017-10-31] MEDS ORDERED: THERA-M1 EACH PO (09:21)
[2017-10-31] MEDS ORDERED: OMEGA 3-6-9 11200 MG PO (09:21)
[2017-10-31 11:28] VITALS: BP 133/62
[2017-10-31 11:36] LABS: HEMATOCRIT 34.8 % (36.0-46.0); HEMOGLOBIN 10.3 G/DL (11.9-15.5); MCV 84.1 FL (83-99)
[2017-10-31 15:07] VITALS: BP 139/66
[2017-10-31 19:00] VITALS: BP 130/58
[2017-10-31 20:11] LABS: HEMATOCRIT 32.5 % (36.0-46.0); HEMOGLOBIN 9.8 G/DL (11.9-15.5); MCV 83.3 FL (83-99)
[2017-10-31 23:00] VITALS: BP 129/61
[2017-11-01 03:30] VITALS: BP 159/71
[2017-11-01 07:25] VITALS: BP 145/66
[2017-11-01 10:38] LABS: HEMATOCRIT 32.4 % (36.0-46.0); HEMOGLOBIN 9.9 G/DL (11.9-15.5)
[2017-11-01 11:30] VITALS: BP 134/62
[2017-11-01 16:17] VITALS: BP 122/56
[2017-11-01 20:00] VITALS: BP 151/62
[2017-11-01 21:25] LABS: HEMATOCRIT 31.7 % (36.0-46.0); HEMOGLOBIN 9.6 G/DL (11.9-15.5); MCV 82.1 FL (83-99)
[2017-11-02 00:33] VITALS: BP 171/74
[2017-11-02 04:00] VITALS: BP 131/62
[2017-11-02 06:07] LABS: HEMATOCRIT 32.1 % (36.0-46.0); HEMOGLOBIN 9.8 G/DL (11.9-15.5); MCV 82.5 FL (83-99)
[2017-11-02 08:06] VITALS: BP 149/70
[2017-11-02 15:13] VITALS: BP 141/63
[2017-11-03 00:32] VITALS: BP 125/61
[2017-11-03 05:53] LABS: BASOPHIL (%) 0.6 % (0-1); EOSINOPHIL COUNT 0.2 K/uL (0-0.3); HEMATOCRIT 31.2 % (36.0-46.0); HEMOGLOBIN 9.6 G/DL (11.9-15.5); IMMATURE GRANULOCYTE (%) 0.3 % (0.0-0.7); LYMPHOCYTE (%) 23.2 % (15-42); LYMPHOCYTE COUNT 1.6 K/uL (1.0-2.8); MCH 25.5 PG (29.0-34.0); MCHC 30.8 G/DL (30.0-36.0); MCV 82.8 FL (83-99); MONOCYTE (%) 8.8 % (3-12); MONOCYTE COUNT 0.6 K/uL (0-0.8); NEUTROPHIL (%) 64.1 % (45-76); NEUTROPHIL COUNT 4.4 K/uL (1.8-6.4); PLATELET COUNT 235 K/uL (156-360); RBC DIS.WIDTH-CV 17.4 % (11.8-14.6); RBC DIS.WIDTH-SD 51.7 % (39-53); RED BLOOD COUNT 3.77 M/uL (3.80-5.20); WHITE BLOOD COUNT 6.9 K/uL (4.1-10.2)
[2017-11-03 07:29] LABS: ALBUMIN 3.1 G/DL (3.2-4.8); ALKALINE PHOSPHATASE 66 IU/L (3-129); ALT (GPT) 16 IU/L (3-49); AST (GOT) 18 IU/L (2-34); CHLORIDE 107 MEQ/L (99-109); CREATININE 0.8 MG/DL (0.6-1.3); GFR ESTIMATE (CALCULATED) > 59 mL/min/; GLUCOSE 127 mg/dL (70-99); POTASSIUM 3.6 MEQ/L (3.7-5.4); SODIUM 143 MEQ/L (136-147); TOTAL BILIRUBIN 0.4 MG/DL (0.0-1.0); TOTAL PROTEIN 5.4 G/DL (6.4-8.3); UREA NITROGEN (BUN) 11 mg/dL (9-23)
[2017-11-03 15:15] LABS: HEMATOCRIT 31.5 % (36.0-46.0); HEMOGLOBIN 9.7 G/DL (11.9-15.5); MCV 82.7 FL (83-99)
[2017-11-03 15:56] VITALS: BP 153/66
[2017-11-03 23:41] VITALS: BP 136/76
[2017-11-04 07:02] LABS: BASOPHIL (%) 0.8 % (0-1); BASOPHIL COUNT 0.1 K/uL (0-0.1); EOSINOPHIL (%) 3.2 % (0-5); EOSINOPHIL COUNT 0.2 K/uL (0-0.3); HEMATOCRIT 32.3 % (36.0-46.0); HEMOGLOBIN 9.7 G/DL (11.9-15.5); IMMATURE GRANULOCYTE (%) 0.3 % (0.0-0.7); LYMPHOCYTE (%) 22.5 % (15-42); LYMPHOCYTE COUNT 1.4 K/uL (1.0-2.8); MCH 24.8 PG (29.0-34.0); MCV 82.6 FL (83-99); MONOCYTE (%) 9.1 % (3-12); MONOCYTE COUNT 0.6 K/uL (0-0.8); NEUTROPHIL (%) 64.1 % (45-76); PLATELET COUNT 239 K/uL (156-360); RBC DIS.WIDTH-CV 17.5 % (11.8-14.6); RED BLOOD COUNT 3.91 M/uL (3.80-5.20); WHITE BLOOD COUNT 6.3 K/uL (4.1-10.2)
[2017-11-04 07:34] VITALS: BP 137/60
[2017-11-04 08:39] LABS: CHLORIDE 107 MEQ/L (99-109); CREATININE 0.7 MG/DL (0.6-1.3); GFR ESTIMATE (CALCULATED) > 59 mL/min/; GLUCOSE 124 mg/dL (70-99); POTASSIUM 3.9 MEQ/L (3.7-5.4); SODIUM 143 MEQ/L (136-147); UREA NITROGEN (BUN) 12 mg/dL (9-23)
[2017-11-04] MEDS ORDERED: ANUCORT-HC25 MG PR (08:58)
[2017-11-04] MEDS ORDERED: LOPRESSOR25 MG PO (08:58)
== END 2017-11-04 13:03 | disposition home health service (06) | DRG 379 ==
LOC: EME → EDBD 12:28 → EDOF 14:23 → 4EAST 14:23 → 5SOUTH 14:23 → ENRESERV 14:24 → 4EAST 16:55 → ENRESERV 11-01 11:10 → 5SOUTH 11-01 15:57
PROVIDERS: Emergency Medicine; Hospitalist; Student in an Organized Health Care Education/Training Program
PROC: 30233K1 Transfusion of Nonautologous Frozen Plasma into Peripheral Vein, Percutaneous Approach (ICD-10-PCS; principal; 2017-10-30)
DX: K62.5 Hemorrhage of anus and rectum (principal); T45.515A Adverse effect of anticoagulants, initial encounter; K64.9 Unspecified hemorrhoids; K57.30 Diverticulosis of large intestine without perforation or abscess without bleeding; D50.0 Iron deficiency anemia secondary to blood loss (chronic); E11.9 Type 2 diabetes mellitus without complications; I11.0 Hypertensive heart disease with heart failure; I50.9 Heart failure, unspecified; J44.9 Chronic obstructive pulmonary disease, unspecified; Z99.81 Dependence on supplemental oxygen; R00.1 Bradycardia, unspecified; E78.5 Hyperlipidemia, unspecified; I48.0 Paroxysmal atrial fibrillation; G25.81 Restless legs syndrome; K21.9 Gastro-esophageal reflux disease without esophagitis; E66.9 Obesity, unspecified; Z68.33 Body mass index [BMI] 33.0-33.9, adult; Z66 Do not resuscitate; F32.9 Major depressive disorder, single episode, unspecified; F41.9 Anxiety disorder, unspecified; Z79.01 Long term (current) use of anticoagulants; Z79.4 Long term (current) use of insulin; Z87.891 Personal history of nicotine dependence
CPT/HCPCS: 80048; 80053; 82948; 84484; 85014; 85018; 85025; 85027; 85610; 86850; 86900; 86901; 93005; 94640; 94640 76; 94799; 97530 GO; 99202; 99281; 99285; J7030; P9017